=== PATIENT | female | born 2000 | race Caucasian/White ===

== ENCOUNTER 2024-06-18 22:09 | Emergency (ER) | payer BC ==
[2024-06-18 22:35] VITALS: TEMP 98.6; O2SAT 99
[2024-06-18] MEDS ORDERED: TORAdol 30 mg Injection ONE (22:40)
[2024-06-18] MEDS ORDERED: Sodium Chloride 0.9% 1000 ML 1,000 ML ONE (22:41)
[2024-06-18] MEDS ORDERED: TYLENOL 325 MG ONE (22:41)
[2024-06-18] MEDS: TORAdol 30 mg Injection IV ONE (22:45)
[2024-06-18] MEDS: Sodium Chloride 0.9% 1000 ML 1,000 ML IV STA (22:45)
[2024-06-18] MEDS: TYLENOL 325 MG PO ONE (22:47)
--- NOTE | 2024-06-18 22:59 | ERPHSYRPT ---
- History of Present Illness Patient Subjective Stated Complaint: c/o dizziness, fever, body aches Triage Nursing Assessment: patient brought to ED by boyfriend with c/o of fever, dizziness, tachycardia, and body ache. patient states she has a 102 fever at home, temp is 98.6 per out thermometer, patient states she is on antibiotics for mastitis in her left breast. Patient has a little tenderness of left breast, pulses normal, s1 and s2 heard, gait steady, skin w/n/d, vitals wnl, pt doesn't appear to be in any distress at this time. Allergies/Adverse Reactions: codeine Allergy (Verified 06/18/24 22:37) Rash amoxicillin Adverse Reaction (Verified 06/18/24 22:37) Rash Penicillins Adverse Reaction (Verified 06/18/24 22:37) Rash Home Medications: cephALEXin [Cephalexin] 500 mg PO QID 06/18/24 [History] Hx Tetanus, Diphtheria Vaccination/Date Given: Yes Hx Influenza Vaccination/Date Given: No Hx Pneumococcal Vaccination/Date Given: No Travel Risk - International Travel Have you traveled outside of the country in past 3 weeks: No - Emerging Infectious Disease Are you exhibiting symptoms associated with any current EIDs: Yes Symptoms: Headaches/Body Aches/ - Past Medical History Pertinent Past Medical History: No Neurological History: No Pertinent History ENT History: No Pertinent History Cardiac History: No Pertinent History Respiratory History: Asthma Endocrine Medical History: No Pertinent History Musculoskeletal History: Fractures GI Medical History: No Pertinent History History: No Pertinent History Psycho-Social History: No Pertinent History Other Medical History: Ovarian cysts, mastitis, bilat ankle fractures, left wrist fractures, elbow fractures, left knee - Past Surgical History Past Surgical History: No Gastrointestinal: Appendectomy, Cholecystectomy - Female History Hx Last Menstrual Period: last december Hx Now: (unknown) - Social History Smoking Status: Never smoker Exposure to second hand smoke: No Drug Use: none - Social Determinants of Health Will the patient participate in the screening: Yes Do you worry about a steady place to live?: No Do you have any problems with any of the following?: No known problems In the past 12 months,have you had to go without utilities?: No Transportation Issues: No Has anyone in your support network made you feel unsafe?: No Have you or anyone in your house had to go without enough: No - Nursing Vital Signs Nursing Vital Signs: Initial Vital Signs Temperature 98.6 F 06/18/24 22:14 Pulse Rate 105 H 06/18/24 22:14 Respiratory Rate 20 06/18/24 22:14 Blood Pressure 108/67 06/18/24 22:14 O2 Sat by Pulse Oximetry 99 06/18/24 22:14 Pain Scale Pain Intensity 5 - Physical Exam SpO2: 99 Ordered Tests: Active Orders 24 hr Category Date Time Status IV Insertion STAT Care 06/18/24 22:32 Active BLOOD CULTURE Stat Lab 06/18/24 22:45 Ordered CBC W DIFF Stat Lab 06/18/24 22:45 Ordered CMP Stat Lab 06/18/24 22:45 Ordered Lactic Acid Stat Lab 06/18/24 22:46 Ordered UA W/RFX UR CULTURE Stat Lab 06/18/24 22:55 Ordered Medication Summary Generic Name Dose Route Start Last Admin Trade Name Freq PRN Reason Stop Dose Admin Sodium Chloride 1,000 mls @ 999 mls/hr 06/18/24 22:32 06/18/24 22:45 Sodium Chloride 0.9% 1000 Ml IV 06/18/24 23:32 999 mls/hr .Q1H1M STA Administration Discontinued Medications Generic Name Dose Route Start Last Admin Trade Name Freq PRN Reason Stop Dose Admin Acetaminophen 975 mg 06/18/24 22:33 06/18/24 22:47 Acetaminophen 325 Mg Tablet PO 06/18/24 22:34 Not Given STAT ONE Acetaminophen Confirm 06/18/24 22:41 Acetaminophen 325 Mg Tablet Administered 06/18/24 22:42 Dose 975 mg .ROUTE .STK-MED ONE Sodium Chloride Confirm 06/18/24 22:41 Sodium Chloride 0.9% 1000 Ml Administered 06/18/24 22:42 Dose 1,000 mls @ ud .ROUTE .STK-MED ONE Ketorolac Tromethamine 30 mg 06/18/24 22:33 06/18/24 22:45 Ketorolac Tromethamine 30 Mg/Ml Inj IV 06/18/24 22:34 30 mg STAT ONE Administration Ketorolac Tromethamine Confirm 06/18/24 22:40 Ketorolac Tromethamine 30 Mg/Ml Inj Administered 06/18/24 22:41 Dose 30 mg .ROUTE .STK-MED ONE - Departure Referrals: CLINT CARROLL FNP [Primary Care Provider] - Follow up/PCP as directed
--- NOTE | 2024-06-18 23:04 | ERPHSYRPT ---
- History of Present Illness Time Seen by Provider: 06/18/24 22:30 Source: patient Exam Limitations: no limitations Patient Subjective Stated Complaint: c/o dizziness, fever, body aches Triage Nursing Assessment: patient brought to ED by boyfriend with c/o of fever, dizziness, tachycardia, and body ache. patient states she has a 102 fever at home, temp is 98.6 per out thermometer, patient states she is on antibiotics for mastitis in her left breast. Patient has a little tenderness of left breast, pulses normal, s1 and s2 heard, gait steady, skin w/n/d, vitals wnl, pt doesn't appear to be in any distress at this time. Physician History: 24-year-old female presents to our ED for evaluation of fever dizziness tachyc ardia body aches. Patient reports a fever of 102 at home. Currently afebrile. Patient states she is currently on antibiotics for left breast mastitis diagnosed today. No other complaints. No trauma. No nausea vomiting no diarrhea no rash. No obvious sick contacts. Patient is otherwise healthy. She voices no other complaints or concerns at this time. Portions of this note were created with voice recognition technology. There may be grammatical, spelling, punctuation or sound alike errors Timing/Duration: today Severity: moderate Modifying Factors: Improves With: nothing Associated Symptoms: denies symptoms Allergies/Adverse Reactions: codeine Allergy (Verified 06/18/24 22:37) Rash amoxicillin Adverse Reaction (Verified 06/18/24 22:37) Rash Penicillins Adverse Reaction (Verified 06/18/24 22:37) Rash Home Medications: cephALEXin [Cephalexin] 500 mg PO QID 06/18/24 [History] Hx Tetanus, Diphtheria Vaccination/Date Given: Yes Hx Influenza Vaccination/Date Given: No Hx Pneumococcal Vaccination/Date Given: No Travel Risk - International Travel Have you traveled outside of the country in past 3 weeks: No - Emerging Infectious Disease Are you exhibiting symptoms associated with any current EIDs: Yes Symptoms: Headaches/Body Aches/ - Review of Systems Constitutional: No Symptoms, No Fever, No Chills Eyes: No Symptoms Ears, Nose, & Throat: No Symptoms Respiratory: No Symptoms, No Cough, No Dyspnea Cardiac: No Symptoms, No Chest Pain, No Edema, No Syncope Abdominal/Gastrointestinal: No Symptoms, No Abdominal Pain, No Nausea, No Vomiting, No Diarrhea Genitourinary Symptoms: No Symptoms, No Dysuria Musculoskeletal: No Symptoms, No Back Pain, No Neck Pain Skin: No Symptoms, No Rash Neurological: No Symptoms, No Dizziness, No Focal Weakness, No Sensory Changes Psychological: No Symptoms Endocrine: No Symptoms Hematologic/Lymphatic: No Symptoms Immunological/Allergic: No Symptoms All Other Systems: Reviewed and Negative - Past Medical History Pertinent Past Medical History: No Neurological History: No Pertinent History ENT History: No Pertinent History Cardiac History: No Pertinent History Respiratory History: Asthma Endocrine Medical History: No Pertinent History Musculoskeletal History: Fractures GI Medical History: No Pertinent History History: No Pertinent History Psycho-Social History: No Pertinent History Other Medical History: Ovarian cysts, mastitis, bilat ankle fractures, left wrist fractures, elbow fractures, left knee - Past Surgical History Past Surgical History: No Gastrointestinal: Appendectomy, Cholecystectomy - Female History Hx Last Menstrual Period: last december Hx Now: (unknown) - Social History Smoking Status: Never smoker Exposure to second hand smoke: No Drug Use: none - Social Determinants of Health Will the patient participate in the screening: Yes Do you worry about a steady place to live?: No Do you have any problems with any of the following?: No known problems In the past 12 months,have you had to go without utilities?: No Transportation Issues: No Has anyone in your support network made you feel unsafe?: No Have you or anyone in your house had to go without enough: No - Nursing Vital Signs Nursing Vital Signs: Initial Vital Signs Temperature 98.6 F 06/18/24 22:14 Pulse Rate 105 H 06/18/24 22:14 Respiratory Rate 20 06/18/24 22:14 Blood Pressure 108/67 06/18/24 22:14 O2 Sat by Pulse Oximetry 99 06/18/24 22:14 Pain Scale Pain Intensity 5 - Physical Exam General Appearance: no apparent distress, alert Eye Exam: PERRL/EOMI, eyes nml inspection Ears, Nose, Throat Exam: normal ENT inspection, TMs normal, pharynx normal, moist mucous membranes Neck Exam: normal inspection, non-tender, supple, full range of motion Respiratory Exam: normal breath sounds, lungs clear, No respiratory distress Cardiovascular Exam: regular rate/rhythm, normal heart sounds, normal peripheral pulses Gastrointestinal/Abdomen Exam: soft, normal bowel sounds, No tenderness, No mass Back Exam: normal inspection, normal range of motion, No CVA tenderness, No vertebral tenderness Extremity Exam: normal inspection, normal range of motion, pelvis stable Neurologic Exam: alert, oriented x 3, cooperative, normal mood/affect, nml cerebellar function, nml station & gait, sensation nml, No motor deficits Skin Exam: normal color, warm, dry, other (Slight redness to left breast lateral aspect. No obvious axillary lymphadenopathy. Patient currently on a ntibiotics), No rash Lymphatic Exam: No adenopathy SpO2 Interpretation: normal SpO2: 99 O2 Delivery: Room Air - Course Nursing assessment & vital signs reviewed: Yes Ordered Tests: Active Orders 24 hr Category Date Time Status IV Insertion STAT Care 06/18/24 22:32 Active BLOOD CULTURE Stat Lab 06/18/24 23:00 Received CBC W DIFF Stat Lab 06/18/24 22:50 Completed CMP Stat Lab 06/18/24 22:50 Completed CULTURE,URINE Stat Lab 06/18/24 22:55 Received Lactic Acid Stat Lab 06/18/24 22:46 Completed UA W/RFX UR CULTURE Stat Lab 06/18/24 22:55 Completed Medication Summary Discontinued Medications Generic Name Dose Route Start Last Admin Trade Name Freq PRN Reason Stop Dose Admin Acetaminophen 975 mg 06/18/24 22:33 06/18/24 22:47 Acetaminophen 325 Mg Tablet PO 06/18/24 22:34 Not Given STAT ONE Acetaminophen Confirm 06/18/24 22:41 Acetaminophen 325 Mg Tablet Administered 06/18/24 22:42 Dose 975 mg .ROUTE .STK-MED ONE Sodium Chloride 1,000 mls @ 999 mls/hr 06/18/24 22:32 06/18/24 22:45 Sodium Chloride 0.9% 1000 Ml IV 06/18/24 23:32 999 mls/hr .Q1H1M STA Administration Sodium Chloride Confirm 06/18/24 22:41 Sodium Chloride 0.9% 1000 Ml Administered 06/18/24 22:42 Dose 1,000 mls @ ud .ROUTE .STK-MED ONE Ketorolac Tromethamine 30 mg 06/18/24 22:33 06/18/24 22:45 Ketorolac Tromethamine 30 Mg/Ml Inj IV 06/18/24 22:34 30 mg STAT ONE Administration Ketorolac Tromethamine Confirm 06/18/24 22:40 Ketorolac Tromethamine 30 Mg/Ml Inj Administered 06/18/24 22:41 Dose 30 mg .ROUTE .K-MED ONE Lab/Rad Data: Laboratory Result Diagrams 06/18/24 22:50 06/18/24 22:50 Laboratory Results 06/18/24 06/18/24 06/18/24 Range/Units 22:55 22:50 22:50 WBC 9.2 (3.98-10.04) x10^3/uL RBC 4.61 (3.93-5.22) x10^6/uL Hgb 12.6 (11.2-15.7) g/dL Hct 39.1 (34.1-44.9) % MCV 84.8 (79.4-94.8) fL MCH 27.3 (25.6-32.2) pg MCHC 32.2 (32.2-35.5) g/dL RDW 12.6 (11.7-14.4) % Plt Count 184 (182-369) x10^3/uL MPV 9.8 (9.4-12.3) fL Gran % 79.4 H (34.0-71.1) % Immature Gran % (Auto) 0.4 (0.001-0.429) % Nucleat RBC Rel Count 0.0 (0.00-0.2) % Eos # (Auto) 0 L (0.04-0.36) x10^3/uL Immature Gran # (Auto) 0.04 H (0.001-0.031) x10^3u/L Absolute Lymphs (auto) 1.41 (1.18-3.74) x10^3/uL Absolute Monos (auto) 0.42 (0.24-0.86) x10^3/uL Absolute Nucleated RBC 0.00 (0.00-0.012) x10^3u/L Lymphocytes % 15.4 L (19.3-51.7) % Monocytes % 4.6 L (4.7-12.5) % Eosinophils % 0.0 L (0.7-5.8) % Basophils % 0.2 (0.1-1.2) % Absolute Granulocytes 7.28 H (1.56-6.13) x10^3/uL Basophils # 0.02 (0.01-0.08) x10^3/uL Sodium 137 (135-145) mmol/L Potassium 3.1 L (3.5-5.1) mmol/L Chloride 103 (98-107) mmol/L Carbon Dioxide 23 (22-30) mmol/L Anion Gap 14.2 (5-15) MEQ/L BUN 17 (7-17) mg/dL Creatinine 0.86 (0.52-1.04) mg/dL Estimated GFR 97.3 ML/MIN Glucose 139 H (74-106) mg/dL Lactic Acid (0.4-2.0) Calcium 9.0 (8.4-10.2) mg/dL Total Bilirubin 1.40 H (0.2-1.3) mg/dL AST 21 (14-36) U/L ALT 14 (0-35) U/L Alkaline Phosphatase 71 (38-126) U/L Serum Total Protein 7.1 (6.3-8.2) g/dL Albumin 4.7 (3.5-5.0) g/dL Urine Color Dark Yellow A (Yellow) Urine Appearance Cloudy A (Clear) Urine pH 6.0 (4.6-8.0) Ur Specific [place] >=1.030 A (1.005-1.030) Urine Protein 30 (Negative) Urine Glucose (UA) Negative (Negative) mg/dL Urine Ketones 80 A (Negative) Urine Blood Negative (Negative) Urine Nitrite Negative (Negative) Urine Bilirubin Negative (Negative) Urine Urobilinogen 1.0 A (0.2) mg/dL Ur Leukocyte Esterase Negative (Negative) U Hyaline Cast (Auto) 3-5 A (0-2) /LPF Urine Microscopic RBC 0-2 (0-5) /HPF Urine Microscopic WBC 6-10 A (0-5) /HPF Ur Epithelial Cells Few (None Seen) /HPF Urine Bacteria Rare A (None Seen) /HPF Urine Culture Reflexed YES (NO) 06/18/24 Range/Units 22:46 WBC (3.98-10.04) x10^3/uL RBC (3.93-5.22) x10^6/uL Hgb (11.2-15.7) g/dL Hct (34.1-44.9) % MCV (79.4-94.8) fL MCH (25.6-32.2) pg MCHC (32.2-35.5) g/dL RDW (11.7-14.4) % Plt Count (182-369) x10^3/uL MPV (9.4-12.3) fL Gran % (34.0-71.1) % Immature Gran % (Auto) (0.001-0.429) % Nucleat RBC Rel Count (0.00-0.2) % Eos # (Auto) (0.04-0.36) x10^3/uL Immature Gran # (Auto) (0.001-0.031) x10^3u/L Absolute Lymphs (auto) (1.18-3.74) x10^3/uL Absolute Monos (auto) (0.24-0.86) x10^3/uL Absolute Nucleated RBC (0.00-0.012) x10^3u/L Lymphocytes % (19.3-51.7) % Monocytes % (4.7-12.5) % Eosinophils % (0.7-5.8) % Basophils % (0.1-1.2) % Absolute Granulocytes (1.56-6.13) x10^3/uL Basophils # (0.01-0.08) x10^3/uL Sodium (135-145) mmol/L Potassium (3.5-5.1) mmol/L Chloride (98-107) mmol/L Carbon Dioxide (22-30) mmol/L Anion Gap (5-15) MEQ/L BUN (7-17) mg/dL Creatinine (0.52-1.04) mg/dL Estimated GFR ML/MIN Glucose (74-106) mg/dL Lactic Acid 0.6 (0.4-2.0) Calcium (8.4-10.2) mg/dL Total Bilirubin (0.2-1.3) mg/dL AST (14-36) U/L ALT (0-35) U/L Alkaline Phosphatase (38-126) U/L Serum Total Protein (6.3-8.2) g/dL Albumin (3.5-5.0) g/dL Urine Color (Yellow) Urine Appearance (Clear) Urine pH (4.6-8.0) Ur Specific [place] (1.005-1.030) Urine Protein (Negative) Urine Glucose (UA) (Negative) mg/dL Urine Ketones (Negative) Urine Blood (Negative) Urine Nitrite (Negative) Urine Bilirubin (Negative) Urine Urobilinogen (0.2) mg/dL Ur Leukocyte Esterase (Negative) U Hyaline Cast (Auto) (0-2) /LPF Urine Microscopic RBC (0-5) /HPF Urine Microscopic WBC (0-5) /HPF Ur Epithelial Cells (None Seen) /HPF Urine Bacteria (None Seen) /HPF Urine Culture Reflexed (NO) - Progress Progress: improved Progress Note: 24-year-old female presents to our ED for evaluation of viral-like illness body aches. Patient currently on Keflex 500 4 times daily for a left breast mastitis diagnosed today. Patient advises that she has not eaten very much over the past couple days because she has not felt well. Laboratory workup reveals a potassium of 3.1. Oral potassium replacement administered. Patient advised to increase her oral intake to replenish her vitamins and nutrients. Laboratory workup suggest dehydration secondary to BUN/creatinine ratio of 20:1 as well as an elevated urine specific gravity. Patient received a liter of IV fluids in our ED to address the dehydration. Urinary tract infection observed on today's urinalysis. Patient currently on Keflex. Today is day 1. This should cover the urinary tract infection as well as the left breast mastitis that was diagnosed earlier today by an outside provider. Plan of care discussed with patient. She will continue to take the antibiotics as planned. Patient will increase her oral intake in terms of fluid and nutrition. Patient agrees to follow-up with her primary care provider within 48 hours for reevaluation. She voices no other complaints or concerns at this time. Patient is COVID-positive Portions of this note were created with voice recognition technology. There may be grammatical, spelling, punctuation or sound alike errors 06/18/24 23:45 Complexity of problem addressed is moderate acute complicated no critical care time. Complex of data reviewed and analyzed is moderate. Test ordered test reviewed results analyzed and correlated clinically with history and physical exam. Risk of complication and or risk of morbidity/mortality of patient management is low. Patient has a UTI however she is currently on Keflex. No additional outpatient medications required at this time. Vital stable. Time spent to discharge patient is approximately 20 minutes. Plan of care established for shared decision making. No social determinants of health present to impede follow-up. Portions of this note were created with voice recognition technology. There may be grammatical, spelling, punctuation or sound alike errors 06/18/24 23:51 Counseled pt/family regarding: lab results, diagnosis - Departure Departure Disposition: Home Clinical Impression: Hypokalemia, Viral syndrome, Dehydration, UTI (urinary tract infection), COVID- 19 Condition: Stable Critical Care Time: No Referrals: CLINT CARROLL FNP [Primary Care Provider] - Follow up/PCP as directed Additional Instructions: Discharge/Care Plan BRIONNA VALENCIA was seen on 06/18/24 in the Emergency Room. The patient was counseled regarding Diagnosis,Lab results, Imaging studies, need for follow up and when to return to the Emergency Room. Prescriptions given: Discharge Note I have spoken with the patient and/or caregivers. I have explained the patient's condition, diagnosis and treatment plan based on the information available to me at this time. I have answered the patient's and/or caregiver's questions and addressed any concerns. The patient and/or caregivers have as good understanding of the patient's diagnosis, condition and treatment plan as can be expected at this point. The vital signs have been stable. The patient's condition is stable and appropriate for discharge from the emergency department. The patient will pursue further outpatient evaluation with the primary care physician or other designated or consulting physician as outlined in the discharge instructions. The patient and/or caregivers are agreeable to this plan of care and follow-up instructions have been explained in detail. The patient and/or caregivers have received these instruction. The patient/and or caregivers are aware that any significant change in condition or worsening of symptoms should prompt an immediate return to this or the closest emergency department or call 911.
[2024-06-18 23:05] LABS: Absolute Neutrophil Ct (ANC) 7.28 x10^3/uL (1.56-6.13); BASOPHIL % 0.2 % (0.1-1.2); Basophil (Absolute #) 0.02 x10^3/uL (0.01-0.08); Eosinophil (Absolute #) 0 x10^3/uL (0.04-0.36); Hematocrit 39.1 % (34.1-44.9); Hemoglobin 12.6 g/dL (11.2-15.7); IMMATURE GRAN # 0.04 x10^3u/L (0.001-0.031); IMMATURE GRAN % 0.4 % (0.001-0.429); Lymphocyte (Absolute #) 1.41 x10^3/uL (1.18-3.74); Lymphocytes % 15.4 % (19.3-51.7); Mean Cell Volume 84.8 fL (79.4-94.8); Mean Corpuscular Hemoglobin 27.3 pg (25.6-32.2); Mean Corpuscular Hgb Concent. 32.2 g/dL (32.2-35.5); Mean Platelet Volume 9.8 fL (9.4-12.3); Monocyte (Absolute #) 0.42 x10^3/uL (0.24-0.86); Monocytes % 4.6 % (4.7-12.5); Neutrophil % 79.4 % (34.0-71.1); Platelet Count 184 x10^3/uL (182-369); Red Blood Count 4.61 x10^6/uL (3.93-5.22); Red Cell Distribution Width 12.6 % (11.7-14.4); White Blood Count 9.2 x10^3/uL (3.98-10.04)
[2024-06-18 23:14] LABS: Appearance Cloudy (Clear); Bacteria Rare /HPF (None Seen); Bilirubin Negative (Negative); Blood Negative (Negative); Epithelial Cells Few /HPF (None Seen); Glucose, Urine Negative (Negative); Ketones 80 (Negative); Leukocyte Esterase Negative (Negative); Nitrite Negative (Negative); Protein,Urine Dip 30 (Negative); RBC 0-2 /HPF (0-5); Specific Gravity >=1.030 (1.005-1.030)
[2024-06-18 23:21] LABS: ALBUMIN 4.7 g/dL (3.5-5.0); ANION GAP 14.2 MEQ/L (5-15); BILIRUBIN,TOTAL 1.4 mg/dL (0.2-1.3); Creatinine 1 0.86 mg/dL (0.52-1.04); EST GLOMERULAR FILTRATION RATE 97.3 ML/MIN; Potassium 3.1 mmol/L (3.5-5.1); Total Protein 7.1 g/dL (6.3-8.2)
[2024-06-18] MEDS: Klor Con PO ONE (23:43)
[2024-06-18] MEDS ORDERED: Klor Con ONE (23:43)
[2024-06-18 23:46] LABS: INFLUENZA A NEGATIVE (NEGATIVE); INFLUENZA B NEGATIVE (NEGATIVE); RESPIRATORY SYNCTIAL VIRUS NEGATIVE (NEGATIVE)
[2024-06-18 23:48] LABS: SARS-CoV-2 Xpert Express POSITIVE (NEGATIVE)
[2024-06-19 00:03] VITALS: BP 99/60; PULSE 89; RESP 19
== END 2024-06-19 00:04 | disposition home or self-care (01) ==
LOC: ED 22:09
DX: E87.6 Hypokalemia (principal); R42 Dizziness and giddiness; R00.0 Tachycardia, unspecified; B34.9 Viral infection, unspecified; E86.0 Dehydration; N39.0 Urinary tract infection, site not specified; U07.1 COVID-19
CPT/HCPCS: 0241U; 36415; 80053; 81001; 83605; 85025; 87040; 87086; 96360; 96374; 99283; 99284; J1885; A9270-GY